=== PATIENT | female | born 1990 | race Hispanic/Latino ===

== ENCOUNTER 2017-12-30 15:38 | Emergency (ER) | payer OTHER ==
[2017-12-30 15:43] VITALS: BP 122/73; PULSE 93; RESP 20; TEMP 98.1; O2SAT 98
--- NOTE | 2017-12-30 17:05 | C.PDOC ---
History Of Present Illness 27 y/o female presents to the ER complaining of left middle toe pain. Patient states that she stubbed her left middle toe on the bed stand yesterday. Patient denies having weakness and numbness. Time Seen by Provider: 12/30/17 16:02 Chief Complaint (Nursing): Lower Extremity Problem/Injury History Per: Patient History/Exam Limitations: no limitations Onset/Duration Of Symptoms: Days Current Symptoms Are (Timing): Still Present Severity: Moderate Past Medical History Reviewed: Historical Data, Nursing Documentation, Vital Signs Vital Signs: Last Vital Signs Temp 98.1 F 12/30/17 15:42 Pulse 93 H 12/30/17 15:42 Resp 20 12/30/17 15:42 BP 122/73 12/30/17 15:42 Pulse Ox 98 12/30/17 17:10 - Medical History PMH: Fractures (RIGHT WRIST) Other Surgeries: Hx of surgeries Family History: States: No Known Family Hx - Social History Hx Alcohol Use: Yes Hx Substance Use: Yes - Immunization History Hx Tetanus Toxoid Vaccination: No Hx Influenza Vaccination: No Hx Pneumococcal Vaccination: No Review Of Systems Except As Marked, All Systems Reviewed And Found Negative. Musculoskeletal: Positive for: Foot Pain (left middle toe pain) Neurological: Negative for: Weakness, Numbness Physical Exam - Physical Exam Appears: Non-toxic, No Acute Distress Skin: Normal Color, Warm, Ecchymosis (ecchymosis to 3rd digit of left foot) Head: Atraumatic, Normacephalic Eye(s): bilateral: Normal Inspection Nose: Normal Oral Mucosa: Moist Neck: Supple Chest: Symmetrical Extremity: Normal ROM (3rd digit of left foot), Tenderness (tenderness to 3rd digit of left foot), Swelling (swelling to 3rd digit of left foot), Other ( right wrist volar splint) Pulses: Left Dorsalis Pedis: Normal Neurological/Psych: Oriented x3, Normal Speech ED Course And Treatment O2 Sat by Pulse Oximetry: 98 (RA) Pulse Ox Interpretation: Normal Medical Decision Making Medical Decision Making: Xray viewed by me showing no acute fracture or dislocation. Franco tape applied by CP. Patient advised to rest, ice and take analgesics. Disposition Counseled Patient/Family Regarding: Studies Performed, Diagnosis, Need For Followup - Disposition Referrals: Podiatry Clinic [Outside] Disposition: HOME/ ROUTINE Disposition Time: 17:00 Condition: GOOD Additional Instructions: Your xray was normal, no fracture. Please apply ice to area 15 minutes three times a day. Take Motrin as needed for pain every 6 hours, with food to not upset stomach. Follow up with orthopedic if pain persists over one week. Instructions: Contusion (DC) Forms: [employer] ([place]) - Clinical Impression Clinical Impression: Toe contusion - PA / RADIOLOGY TRANSCRIPTIONIST / Resident Statement MD/DO has reviewed & agrees with the documentation as recorded. - Scribe Statement The provider has reviewed the documentation as recorded by the Blu Story Provider Attestation All medical record entries made by the Blu were at my direction and personally dictated by me. I have reviewed the chart and agree that the record accurately reflects my personal performance of the history, physical exam, medical decision making, and the department course for this patient. I have also personally directed, reviewed, and agree with the discharge instructions and disposition.
--- NOTE | 2017-12-30 18:11 | RAD ---
PROCEDURE: Left foot attention 3rd digit HISTORY: injury pain and swelling COMPARISON: None TECHNIQUE: Standard protocol for this study/examination. FINDINGS: No significant/acute osseous, articular or soft tissue abnormalities. IMPRESSION: No significant or acute findings to account for/ related to the clinical presentation. Concordant results with the preliminary interpretation rendered by the emergency department physician procedure.
== END 2017-12-30 17:03 | disposition home or self-care (01) ==
LOC: C.ER 15:38
DX: S90.122A Contusion of left lesser toe(s) without damage to nail, initial encounter (principal); W22.8XXA Striking against or struck by other objects, initial encounter; Y92.003 Bedroom of unspecified non-institutional (private) residence as the place of occurrence of the external cause